=== PATIENT | female | born 1940 | race Caucasian/White ===

== ENCOUNTER 2018-12-14 08:48 | Emergency (ER) | payer OTHER ==
--- NOTE | 2018-12-14 08:49 | PDOC ---
History of Present Illness - General Chief Complaint: Urinary Problem Stated Complaint: UTI - History of Present Illness Initial Comments: 12/14/18 08:50 78 year old woman with a history of HTN, breast cancer(remission), osteoporosis who presetns with 2 days of urgency, decreased urination and bladder spasm. No fever, chills, chest pain or shortness of breath. No hematuria. ROS GENERAL/CONSTITUTIONAL: No fever or chills. No weakness. CARDIOVASCULAR: No chest pain or shortness of breath RESPIRATORY: No cough, wheezing, or hemoptysis. GASTROINTESTINAL: No nausea, vomiting, diarrhea or constipation. GENITOURINARY: _+ dysuria, frequency, or change in urination. MUSCULOSKELETAL: No joint or muscle swelling or pain. No neck or back pain. SKIN: No rash . PE GENERAL: Awake, alert, and fully oriented, in no acute distress HEAD: No signs of trauma, normocephalic, atraumatic EYES: EOMI, sclera anicteric, conjunctiva clear ENT: oropharynx clear without exudates. Moist mucosa NECK: Normal ROM, supple LUNGS: No distress, speaks full sentences, clear to auscultation bilaterally HEART: Regular rate and rhythm, normal S1 and S2, no murmurs, rubs or gallops, peripheral pulses normal and equal bilaterally. ABDOMEN: Soft, nontender, normoactive bowel sounds. No guarding, no rebound. No masses BACK: No CVA tenderness EXTREMITIES : Normal inspection, Normal range of motion, no edema. No clubbing or cyanosis. NEUROLOGICAL: Cranial nerves II through XII grossly intact. Normal speech, no focal sensorimotor deficits SKIN: Warm, Dry, normal turgor, no rashes or lesions noted MDM DDX including but not limited to: uti ED Course: ua, urine culture ua positive for uti used macrobid previously with recurrence will dose macrobid and pyridium Mary Ann Millan, PGY2 Emergency Medicine Past History - Past Medical History Allergies/Adverse Reactions: Allergies Allergy/AdvReac Type Severity Reaction Status Date / Time aspirin Allergy Verified 12/14/18 08:51 iodine Allergy Verified 12/14/18 08:51 Penicillins Allergy Verified 12/14/18 08:50 Home Medications: Ambulatory Orders Benazepril HCl 5 mg PO DAILY 12/14/18 Cholecalciferol (Vitamin D3) [Vitamin D3 -] 400 unit PO DAILY 12/14/18 Cyanocobalamin Vit B-12 Inj. [Redisol] 1,000 mcg IM ASDIR 12/14/18 Diphenhydramine HCl [Benadryl -] 25 mg PO HS 12/14/18 Hydrochlorothiazide [Hctz -] 12.5 mg PO DAILY 12/14/18 Letrozole 2.5 mg PO DAILY 12/14/18 Phenazopyridine HCl [Pyridium -] 200 mg PO TID #6 tablet 12/14/18 Sulfamethoxazole/Trimethoprim [Bactrim Ds -] 1 tab PO BID #6 tablet 12/14/18 Discharge - Discharge Information Problems reviewed: Yes Clinical Impression/Diagnosis: UTI (urinary tract infection) Condition: Stable Disposition: HOME - Admission No - Additional Discharge Information Prescriptions: Phenazopyridine HCl [Pyridium -] 200 mg PO TID #6 tablet Sulfamethoxazole/Trimethoprim [Bactrim Ds -] 1 tab PO BID #6 tablet - Follow up/Referral - Patient Discharge Instructions - Post Discharge Activity
[2018-12-14 09:03] VITALS: BP 168/90; PULSE 87; TEMP 98.2; BMI 33.3
[2018-12-14] MEDS ORDERED: SULFAMETHOXAZOLE/TRIMETHOPRIM 800MG/160MG D.S. TABLET PO ONE (09:16)
[2018-12-14] MEDS ORDERED: PHENAZOPYRIDINE HCL 100 MG TABLET (FP) PO ONE (09:16)
[2018-12-14 09:30] LABS: EPITHELIAL CELLS FEW /hpf
--- NOTE | 2018-12-14 09:30 | PDOC ---
Attending Attestation - Resident Resident Name: KuldipRebeka georgesie - ED Attending Attestation I have performed the following: I have examined & evaluated the patient, The case was reviewed & discussed with the resident, I agree w/resident's findings & plan, Exceptions are as noted - HPI HPI: 12/14/18 09:27 78 F with h/o HTN, breast CA s/p mastectomy, osteoporosis, presenting to ED with 1 day of urinary urgency, frequency, and bladder spasms. Pt states that she has had 2 UTIs since May, and this one feels the same. Pt denies F/C. Denies abdominal or flank pain. Denies any other symptoms. Pt states that she has been treated with macrobid her last 2 episodes, which seemed to help. - Physicial Exam PE: 12/14/18 09:29 "GENERAL: Awake, alert, and fully oriented, in no acute distress. HEAD: No signs of trauma EYES: PERRLA, EOMI, sclera anicteric, conjunctiva clear ENT: Auricles normal inspection, hearing grossly normal, nares patent, oropharynx clear without exudates. Moist mucosa NECK: Nontender, no stepoffs, Normal ROM, supple, no lymphadenopathy, JVD, or masses LUNGS: Breath sounds equal, clear to auscultation bilaterally. No wheezes, and no crackles HEART: Regular rate and rhythm, normal S1 and S2, no murmurs, rubs or gallops ABDOMEN: Soft, nontender, normoactive bowel sounds. No guarding, no rebound. No masses EXTREMITIES: Normal range of motion, no edema. No clubbing or cyanosis. No cords, erythema, or tenderness NEUROLOGICAL: Cranial nerves II through XII intact. 5/5 strength and sensation in all extremities, Normal speech, normal gait, normal cerebellar function SKIN: Warm, Dry, normal turgor, no rashes or lesions noted. - Medical Decision Making 12/14/18 09:29 78 F with urinary frequency, urgency, and bladder spasms. Suspect cystitis. - UA, UCx - Bedside US shows decompressed bladder, no evidence of urinary retention Tx with bactrim given likely failure of macrobid. Pt is well appearing, with normal vitals. Clinically stable for DC at this time. I discussed the physical exam findings, ancillary test results and final diagnoses with the patient. I answered all of the patient's questions. The patient was satisfied with the care received and felt comfortable with the discharge plan and treatment plan. The patient agrees to follow up with the primary care physician within 24-72 hours.
[2018-12-14] MEDS ORDERED: PHENAZOPYRIDINE HCL 100 MG TABLET (FP) ONE (09:36)
[2018-12-14] MEDS ORDERED: SULFAMETHOXAZOLE/TRIMETHOPRIM 800MG/160MG D.S. TABLET ONE (09:36)
== END 2018-12-14 09:38 | disposition home or self-care (01) ==
LOC: FER 08:48
DX: N39.0 Urinary tract infection, site not specified (principal); I10 Essential (primary) hypertension; M81.0 Age-related osteoporosis without current pathological fracture; Z90.10 Acquired absence of unspecified breast and nipple; Z88.0 Allergy status to penicillin; Z88.6 Allergy status to analgesic agent; Z91.048 Other nonmedicinal substance allergy status
CPT/HCPCS: 81003; 81015; 87086; 87186; 99282-25

== ENCOUNTER 2020-07-04 19:29 | Emergency (ER) | payer OTHER ==
[2020-07-04 19:41] VITALS: BP 130/82; PULSE 119; TEMP 98.9; BMI 39.8
== END 2020-07-04 21:32 | disposition home or self-care (01) ==
LOC: SUPCPDRO 19:29 → FER 19:29
DX: R60.0 Localized edema (principal)
CPT/HCPCS: 93970-TC; 99284-25

== ENCOUNTER 2023-01-04 23:51 | Emergency (ER) | payer OTHER ==
[2023-01-05 00:10] VITALS: BP 129/66; RESP 18; BMI 37.8
[2023-01-05] MEDS ORDERED: ACETAMINOPHEN 1000 MG/100 ML BAG IVPB ONE (00:16)
[2023-01-05] MEDS ORDERED: SODIUM CHLORIDE 0.9% 500 ML INFUS.BAG IV ONE (00:16)
[2023-01-05] MEDS ORDERED: ACETAMINOPHEN INJECTION 100 ML IVPB ONE (00:19)
[2023-01-05 01:19] LABS: HEMATOCRIT 40.3 % (32.4-45.2); HEMOGLOBIN 13.6 GM/dL (10.7-15.3); MCH 29.2 pg (25.7-33.7); MCHC 33.6 g/dl (32.0-36.0); MEAN CELL VOLUME 86.8 fl (80-96); MEAN PLT VOLUME 8.4 fl (7.5-11.1); PLATELET COUNT 259 10^3/uL (134-434); RBC 4.65 M/mm3 (3.60-5.2); RDW 14.7 % (11.6-15.6); WHITE BLOOD COUNT 8.9 K/mm3 (4.0-10.0)
[2023-01-05 01:39] LABS: POTASSIUM 3.5 mmol/L (3.5-5.1)
[2023-01-05 01:40] VITALS: TEMP 100.3
[2023-01-05 01:41] LABS: CALCIUM 9.6 mg/dL (8.5-10.1)
[2023-01-05 01:42] LABS: BLOOD UREA NITROGEN 35.3 mg/dL (7-18); MAGNESIUM 1.4 mg/dL (1.8-2.4)
[2023-01-05 01:45] LABS: CREATININE 1.2 mg/dL (0.55-1.3); PHOSPHOROUS 2.2 mg/dL (2.5-4.9)
[2023-01-05 01:46] LABS: BILIRUBIN,TOTAL 3.3 mg/dL (0.2-1); TOT PROT 7.7 g/dl (6.4-8.2)
[2023-01-05] MEDS ORDERED: LOPERAMIDE HCL 2 MG CAPSULE PO ONE (01:52)
[2023-01-05] MEDS ORDERED: MAGNESIUM SULFATE IN WATER 2 GM/50 ML IVPB IVPB ONE (01:52)
[2023-01-05] MEDS ORDERED: LOPERAMIDE HCL 2 MG CAPSULE ONE (01:53)
[2023-01-05] MEDS ORDERED: MAGNESIUM SULF 50% (8.12 MEQ/2 ML-1 GM VIAL) ONE (01:53)
[2023-01-05] MEDS ORDERED: CIPROFLOXACIN 500 MG TABLET (RESTRICTED TO ID) PO ONE (01:57)
[2023-01-05] MEDS ORDERED: CIPROFLOXACIN 250 MG TABLET (RESTRICTED TO ID) PO ONE (01:59)
[2023-01-05 02:50] VITALS: PULSE 100
== END 2023-01-05 03:03 | disposition home or self-care (01) ==
LOC: FER 23:51
PROC: 3E033GC Introduction of Other Therapeutic Substance into Peripheral Vein, Percutaneous Approach (ICD-10-PCS; principal; 2023-01-05)
PROC: 3E033NZ Introduction of Analgesics, Hypnotics, Sedatives into Peripheral Vein, Percutaneous Approach (ICD-10-PCS; 2023-01-05)
DX: R19.7 Diarrhea, unspecified (principal); R10.84 Generalized abdominal pain
CPT/HCPCS: 36415; 80053; 83690; 83735; 84100; 85027; 87040; 87045; 87046; 99284-25